=== PATIENT | female | born 1935 | race Caucasian/White ===

== ENCOUNTER 2016-11-15 14:49 | Emergency (ER) | payer MEDICARE, OTHER ==
[2016-11-15 16:23] VITALS: BP 164/92
--- NOTE | 2016-11-15 16:42 | EDM.PDOC ---
ED HPI GENERAL MEDICAL PROBLEM - General Chief Complaint: Genitourinary Problem Stated Complaint: UTI Time Seen by Provider: 11/15/16 16:05 Source of Information: Reports: Patient History Limitations: Reports: No Limitations - History of Present Illness INITIAL COMMENTS - FREE TEXT/NARRATIVE: pt gives a history of recurrent infections. She never feels like it completely clears. She feels like she drinks plenty of water. Onset: Other ( 2 03 days of symptoms. ) Duration: Day(s): Location: Reports: Abdomen Associated Symptoms: Reports: Other ( dysuria) - Related Data Allergies Allergy/AdvReac Type Severity Reaction Status Date / Time lisinopril Allergy Mild Cannot Verified 11/15/16 16:49 Remember ED ROS GENERAL - Review of Systems Review Of Systems: See Below Constitutional: Reports: No Symptoms HEENT: Reports: No Symptoms Respiratory: Reports: No Symptoms Cardiovascular: Reports: No Symptoms Endocrine: Reports: No Symptoms : Reports: Dysuria, Frequency, Urgency Musculoskeletal: Reports: No Symptoms Skin: Reports: No Symptoms ED EXAM, RENAL/ - Physical Exam Exam: See Below Text/Narrative:: pt has urinary frequency and burning. Sh has had symptoms for several days. Exam Limited By: No Limitations General Appearance: Alert, Mild Distress Ears: Normal TMs Nose: Normal Inspection Throat/Mouth: Normal Inspection Head: Atraumatic Neck: Normal Inspection Respiratory/Chest: No Respiratory Distress Cardiovascular: Regular Rate, Rhythm GI/Abdominal: Soft, Non-Tender (Female) Exam: Deferred Rectal (Female) Exam: Deferred Back Exam: Normal Inspection Extremities: Normal Inspection Neurological: Alert, Oriented, Normal Cognition Psychiatric: Normal Affect Course - Vital Signs Last Recorded V/S: Last Vital Signs Temp 36.6 C 11/15/16 16:04 Pulse 101 H 11/15/16 16:04 Resp 16 11/15/16 16:04 BP 164/92 H 11/15/16 16:04 Pulse Ox 99 11/15/16 16:04 - Orders/Labs/Meds Orders: Active Orders 24 hr Category Date Time Status CULTURE URINE [RM] Stat Lab 11/15/16 16:47 Received Labs: Laboratory Tests 11/15/16 Range/Units 15:52 Urine Color Yellow Urine Appearance Cloudy Urine pH 5.0 (4.5-8.0) Ur Specific [place] 1.020 (1.008-1.030) Urine Protein 100 H (NEGATIVE) mg/dL Urine Glucose (UA) Normal (NEGATIVE) mg/dL Urine Ketones Negative (NEGATIVE) mg/dL Urine Occult Blood Large (NEGATIVE) Urine Nitrite Negative (NEGATIVE) Urine Bilirubin Negative (NEGATIVE) Urine Urobilinogen Normal (NORMAL) mg/dL Ur Leukocyte Esterase Large (NEGATIVE) Urine RBC 20-30 H (0-5) Urine WBC Packed H (0-5) Ur Epithelial Cells Moderate Amorphous Sediment Few Urine Bacteria Moderate Urine Mucus Few - Re-Assessments/Exams Free Text/Narrative Re-Assessment/Exam: 11/15/16 17:15 pt will be notified of the results of the urine culture. Departure - Departure Time of Disposition: 16:37 Disposition: Home, Self-Care 01 Condition: Fair Clinical Impression: UTI (urinary tract infection) - Discharge Information Instructions: Urinary Tract Infection, Adult Referrals: PCP,None [Primary Care Provider] - Forms: ED Department Discharge Care Plan Goals: call with the result of the urine culture. -- to cell phone #[phone]. augmentin [phone] bid for 5 days with a refill. If the culture indicates that this is the right med refill for ANOTHER 5 DAYS. sEE OWN PHYSIAN FOR EVALUATION SO THAT SEE CAN BE EVALUATED AND POSSIBLY PLACED ON A SMALL ANTIBIOTIC DOSE TO PREVENT INFECTIONS. PYRIDIUM 200MG TID FOR 2 DAYS FOR BURNING, PUSH FLUIDS, BE SURE TO DRINK ADEQUATE WATER. - My Orders Last 24 Hours: My Active Orders 11/15/16 16:47 CULTURE URINE [RM] Stat - Assessment/Plan Last 24 Hours: My Active Orders 11/15/16 16:47 CULTURE URINE [RM] Stat
== END 2016-11-15 17:26 | disposition home or self-care (01) ==
LOC: JP.ED 14:49
DX: N39.0 Urinary tract infection, site not specified (principal); Z88.8 Allergy status to other drugs, medicaments and biological substances
CPT/HCPCS: 81001; 87086; 99284